=== PATIENT | male | born 1970 | race African-American/Black ===

== ENCOUNTER 2016-09-28 19:04 | Emergency (ER) | payer SELFPAY ==
[~2016-09-28] VITALS: Ht 190.5 cm; Wt 110.0 kg
[~2016-09-28 19:04] MED LIST: DOXY100T PO; LEVA750T PO; NAPR-576 PO; PERC5TAB12 PO
[2016-09-28 19:18] VITALS: BP 130/70; PULSE 96; RESP 18; TEMP 100.3; O2SAT 96
[2016-09-28] MEDS ORDERED: AZIT250T3 PO (19:43)
[2016-09-28] MEDS ORDERED: GUAI100S5 PO (19:43)
[2016-09-28] MEDS ORDERED: ALBUAER3 INH (19:43)
--- NOTE | 2016-09-28 19:45 | PD ---
HPI Chief Complaint: Cold / Flu Symptoms Time Seen by Provider: 19:27 Travel History International Travel<30 days: No Contact w/Intl Traveler<30days: No Traveled to known affect area: No History of Present Illness HPI 45-year-old male arrives with 4 days of fever. He has been taking 4 mg of Motrin every 4 hours to 6 hours. He has myalgias. He has had some difficulty sleeping due to fever. He reports a nonproductive cough. There is one sick contact at work who has had similar symptoms and has been improving after starting antibiotics. No nausea vomiting diarrhea or abdominal pain. Influenza assay was negative 3 days prior. PFSH Past Medical History Diminished Hearing: No Immunizations Current: Yes Influenza Vaccination: No Past Surgical History Pacemaker: No Social History Alcohol Use: No Tobacco Use: No (quit cigars 2012) Substance Use: No Allergies-Medications (Allergen,Severity, Reaction): Coded Allergies: No Known Allergies (Verified , 06/02/15) Reported Meds & Prescriptions Reported Meds & Active Scripts Active Proair Hfa 8.5 GM Inh (Albuterol Sulfate) 90 Mcg/Act Aer 1 Puff INH Q4H PRN 108 mcg/actuation Azithromycin 250 Mg Tab 250 Mg PO DIRECTED Take 2 tabs (500 mg) on day 1 then 1 tab daily x 4 days. Guaifenesin-Codeine Liq 100-10 Mg/5 Ml Soln 10 Ml PO HS PRN Review of Systems Except as stated in HPI: all other systems reviewed are Neg Physical Exam Narrative GENERAL: A 5-year-old male well-nourished well-developed no acute distress SKIN: Focused skin assessment warm/dry. HEAD: Atraumatic. Normocephalic. EYES: Pupils equal and round. No scleral icterus. No injection or drainage. ENT: No nasal bleeding or discharge. Mucous membranes pink and moist. NECK: Trachea midline. No JVD. CARDIOVASCULAR: Regular rate and rhythm. No murmur appreciated. RESPIRATORY: No accessory muscle use. Clear to auscultation. Breath sounds equal bilaterally. GASTROINTESTINAL: Abdomen soft, non-tender, nondistended. Hepatic and splenic margins not palpable. MUSCULOSKELETAL: No obvious deformities. No clubbing. No cyanosis. No edema. NEUROLOGICAL: Awake and alert. No obvious cranial nerve deficits. Motor grossly within normal limits. Normal speech. PSYCHIATRIC: Appropriate mood and affect; insight and judgment normal. Data Data Last Documented VS Vital Signs Date Time Temp Pulse Resp B/P Pulse Ox O2 Delivery O2 Flow Rate FiO2 09/28/16 19:32 81 16 97 09/28/16 19:18 100.3 130/70 Vital signs reviewed MDM Medical Decision Making Medical Screen Exam Complete: Yes Emergency Medical Condition: Yes Medical Record Reviewed: Yes Differential Diagnosis Atypical pneumonia, nonspecific viral syndrome, influenza Narrative Course We will send the patient home with prescriptions as written below. Seems most probable that he suffered from a nonspecific viral syndrome. Of note he did mention that an influenza assay performed 3 days ago at an urgent care facility was negative. Return precautions were discussed. Diagnosis Primary Impression: Cough Additional Impression: Fever Qualified Code: R50.9 - Fever, unspecified fever cause Referrals: Primary Care Physician 2 days Additional Instructions: You have a choice when it comes to health care, and we are glad that you chose [facility]. Hopefully, we have met your expectations on today's visit. You are welcome to return to [facility] at any time, as we are committed to meeting the health care needs of our community. Med/Other Pt SpecificInfo: Prescription(s) given Scripts Albuterol 8.5 GM Inh (Proair Hfa 8.5 GM Inh)90 Mcg/Act Aer1 Puff INH Q4H PRN ( COUGH) #1 INHALER Ref 0 108 mcg/actuation Prov:Elmer Martínez MD 09/28/16 Azithromycin 250 Mg [id number] Mg PO DIRECTED #6 TAB Ref 0 Take 2 tabs (500 mg) on day 1 then 1 tab daily x 4 days. Prov:Elmer Martínez MD 09/28/16 Guaifenesin-Codeine Liq 100-10 Mg/5 Ml Soln10 Ml PO HS PRN (COUGH) #1 BOTTLE Ref 0 Prov:Elmer Martínez MD 09/28/16 Disposition: 01 DISCHARGE HOME Condition: Stable Elmer Martínez MD Sep 28, 2016 19:45
[2016-09-28 19:55] VITALS: BP 125/67; PULSE 78; RESP 16; O2SAT 97
== END 2016-09-28 20:00 | disposition home or self-care (01) ==
LOC: PHED 19:04
DX: R05 Cough (principal); R50.9 Fever, unspecified
CPT/HCPCS: 99284

== ENCOUNTER 2017-06-30 09:57 | Emergency (ER) | payer OTHER ==
[2017-06-30] VITALS (10 sets, daily range): BP systolic 105–132; BP diastolic 62–79; PULSE 54–63; RESP 14–18; TEMP 97.8; O2SAT 96–100
[~2017-06-30 09:57] MED LIST changes: +ALBUAER3 INH; +AZIT250T3 PO; -DOXY100T PO; +GUAI100S5 PO; -LEVA750T PO; -NAPR-576 PO; -PERC5TAB12 PO
[2017-06-30] MEDS ORDERED: ASPIRIN 81 MG CHEW TAB PO ONE (10:45)
[2017-06-30] MEDS ORDERED: SODIUM CHLORIDE 0.9% FLUSH 10 ML FLUSH IVF PRN (10:45)
[2017-06-30] MEDS ORDERED: MORPHINE SULFATE 4 MG/ML INJ IV PUSH ONE (10:45)
[2017-06-30] MEDS: NITROGLYCERIN 0.4 MG SL 25 TABS/BTL SL SCH ×3 (11:05→11:32)
[2017-06-30 11:19] LABS: AUTOMATED NEUTROPHIL # 5.7 TH/MM3 (1.8-7.7); BASOPHIL # 0.1 TH/MM3 (0-0.2); BASOPHIL % 0.7 % (0.0-2.0); EOSINOPHIL # 0.1 TH/MM3 (0-0.4); EOSINOPHIL % 0.9 % (0.0-4.0); HEMATOCRIT 42.7 % (39.0-51.0); HEMOGLOBIN 13.8 GM/DL (13.0-17.0); LYMPH % 23.6 % (9.0-44.0); MEAN CELL VOLUME 86.9 FL (80.0-100.0); MEAN CORPUSCULAR HEMOGLOBIN 28.1 PG (27.0-34.0); MEAN CORPUSCULAR HGB CONC 32.4 % (32.0-36.0); MEAN PLATELET VOLUME 10.6 FL (7.0-11.0); MONO % 6.2 % (0.0-8.0); MONOCYTE # 0.5 TH/MM3 (0-0.9); NEUT % 68.6 % (16.0-70.0); PLATELET COUNT 202 TH/MM3 (150-450); RED BLOOD COUNT 4.91 MIL/MM3 (4.50-5.90); RED CELL DISTRIBUTION WIDTH 12.2 % (11.6-17.2); WHITE BLOOD COUNT 8.3 TH/MM3 (4.0-11.0)
--- NOTE | 2017-06-30 11:19 | RADRPT ---
EXAM DATE/TIME: 06/30/2017 11:02 [place] COMPARISON: No previous studies available for comparison. INDICATIONS : Chest pain. MEDICAL HISTORY : None. SURGICAL HISTORY : None. ENCOUNTER: Initial ACUITY: 2 days PAIN SCORE: 7/10 LOCATION: Left upper chest FINDINGS: A single view of the chest demonstrates the lungs to be symmetrically aerated without evidence of mas s, infiltrate or effusion. The cardiomediastinal contours are unremarkable. Osseous structures are intact. CONCLUSION: No acute disease. Jhonny Ferguson MD on June 30, 2017 at 11:16 Board Certified Radiologist. This report was verified electronically.
--- NOTE | 2017-06-30 11:24 | PD ---
HPI . Chest pain Chief Complaint: Cardiac Complaint Time Seen by Provider: 10:42 Travel History International Travel<30 days: No Contact w/Intl Traveler<30days: No Traveled to known affect area: No History of Present Illness HPI Patient presents with a chief complaint of chest pain. Onset was last night. It is a mild, aching, left-sided chest discomfort which is exacerbated by movement and deep respirations. Symptoms have waxed and waned. He did not have any trouble sleeping last night as the result of his pain. He denies any known injury. He does not have any significant associated symptoms such as shortness of breath, diaphoresis, dizziness or nausea. PFSH Past Medical History Medical History: Denies Significant Hx Diminished Hearing: No Immunizations Current: Yes Tetanus Vaccination: < 5 Years Influenza Vaccination: No Past Surgical History Joint Replacement: Yes (R KNEE SURGERY ) Pacemaker: No Other Surgery: No Social History Alcohol Use: No Tobacco Use: No (quit cigars 2012) Substance Use: No Allergies-Medications (Allergen,Severity, Reaction): Coded Allergies: No Known Allergies (Verified Adverse Reaction, Unknown, 06/30/17) Reported Meds & Prescriptions Reported Meds & Active Scripts Active No Active Prescriptions or Reported Medications Review of Systems Except as stated in HPI: all other systems reviewed are Neg Physical Exam Narrative GENERAL: Healthy-appearing man who is in no acute distress. SKIN: warm/dry. HEAD: Normocephalic. Atraumatic. EYES: Pupils equal and round. No scleral icterus. No injection or drainage. ENT: No nasal bleeding or discharge. Mucous membranes pink and moist. NECK: Trachea midline. Full range of motion without pain.. CARDIOVASCULAR: Regular rate and rhythm. Heart sounds are normal. RESPIRATORY: No accessory muscle use. Clear to auscultation. Breath sounds equal bilaterally. I am unable to elicit any chest wall tenderness. GASTROINTESTINAL: Abdomen soft. Nontender. Bowel sounds present. Nondistended. MUSCULOSKELETAL: No obvious deformities. NEUROLOGICAL: Awake and alert. No obvious cranial nerve deficits. Motor grossly within normal limits. Normal speech. PSYCHIATRIC: Appropriate mood and affect; insight and judgment normal. Data Data Last Documented VS Vital Signs Date Time Temp Pulse Resp B/P (MAP) Pulse Ox O2 Delivery O2 Flow Rate FiO2 06/30/17 12:30 54 17 117/70 (86) 98 Nasal Cannula 2.00 06/30/17 10:33 97.8 Orders Orders Electrocardiogram (06/30/17 11:15) Basic Metabolic Panel (Bmp) (06/30/17 10:44) Complete Blood Count With Diff (06/30/17 10:44) Magnesium (Mg) (06/30/17 10:44) Prothrombin Time / Inr (Pt) (06/30/17 10:44) Act Partial Throm Time (Ptt) (06/30/17 10:44) Troponin I (06/30/17 10:44) Chest, Single Ap (06/30/17 10:44) Ecg Monitoring (06/30/17 10:44) Iv Access Insert/Monitor (06/30/17 10:44) Oximetry (06/30/17 10:44) Aspirin Chew (Aspirin Chew) (06/30/17 10:45) Morphine Inj (Morphine Inj) (06/30/17 10:45) Sodium Chloride 0.9% Flush (Ns Flush) (06/30/17 10:45) Nitroglycerin Sl (Nitrostat Sl) (06/30/17 10:45) D-Dimer (06/30/17 11:24) Troponin I (06/30/17 13:50) Electrocardiogram (06/30/17 13:50) Labs Laboratory Tests Test 06/30/17 10:50 06/30/17 14:15 White Blood Count 8.3 TH/MM3 Red Blood Count 4.91 MIL/MM3 Hemoglobin 13.8 GM/DL Hematocrit 42.7 % Mean Corpuscular Volume 86.9 FL Mean Corpuscular Hemoglobin 28.1 PG Mean Corpuscular Hemoglobin Concent 32.4 % Red Cell Distribution Width 12.2 % Platelet Count 202 TH/MM3 Mean Platelet Volume 10.6 FL Neutrophils (%) (Auto) 68.6 % Lymphocytes (%) (Auto) 23.6 % Monocytes (%) (Auto) 6.2 % Eosinophils (%) (Auto) 0.9 % Basophils (%) (Auto) 0.7 % Neutrophils # (Auto) 5.7 TH/MM3 Lymphocytes # (Auto) 2.0 TH/MM3 Monocytes # (Auto) 0.5 TH/MM3 Eosinophils # (Auto) 0.1 TH/MM3 Basophils # (Auto) 0.1 TH/MM3 CBC Comment DIFF FINAL Differential Comment Prothrombin Time 10.2 SEC Prothromb Time International Ratio 1.0 RATIO Activated Partial Thromboplast Time 25.7 SEC D-Dimer Quantitative (PE/DVT) LESS THAN 0.19 MG/L FEU Blood Urea Nitrogen 13 MG/DL Creatinine 1.09 MG/DL Random Glucose 104 MG/DL Calcium Level 9.7 MG/DL Magnesium Level 2.0 MG/DL Sodium Level 140 MEQ/L Potassium Level 4.4 MEQ/L Chloride Level 105 MEQ/L Carbon Dioxide Level 29.3 MEQ/L Anion Gap 6 MEQ/L Estimat Glomerular Filtration Rate 88 ML/MIN Troponin I LESS THAN 0.02 NG/ML LESS THAN 0.02 NG/ML MDM Medical Decision Making Medical Screen Exam Complete: Yes Emergency Medical Condition: Yes Interpretation(s) EKG shows a sinus rhythm with LVH and diffuse ST segment elevation in leads V2 through V6. The elevation is minimal. Unfortunately, he has no old EKGs for comparison. Differential Diagnosis Differential diagnosis of chest pain includes but is not limited to musculoskeletal pain, pulmonary embolism, acute coronary syndrome, pneumonia, pleurisy Narrative Course This patient presents with chest pain which sounds like musculoskeletal chest pain. However, he does not have a normal EKG and he does not have any old EKGs for comparison. He has been given aspirin, morphine and sublingual nitroglycerin. An EKG will be repeated. Chest x-ray and routine cardiac labs are also in process. CBC & BMP Diagram 06/30/17 10:50 Calcium Level 9.7, Magnesium Level 2.0 trop < 0.02 Admission to the chest pain center was discussed with the patient and his . He is concerned about missing work tomorrow. His chest pain does not really sound like cardiac chest pain. We decided to check a second troponin and EKG 3 hours after the first. Those have been done. Repeat troponin is less than 0.02. EKG is unchanged. The patient will be allowed to go home. I will give him prescriptions for ibuprofen and Ultram. Diagnosis Primary Impression: Chest pain Qualified Codes: R07.1 - Chest pain on breathing Patient Instructions: Chest Pain (DC), General Instructions Med/Other Pt SpecificInfo: Prescription(s) given Scripts Tramadol (Ultram) 50 Mg Tab 50 MG PO Q4H Y for PAIN, #12 TAB 0 Refills Prov: Sheila Murray MD 06/30/17 Ibuprofen (Ibuprofen) 800 Mg Tab 800 MG PO Q8H Y for Pain/Inflammation, #60 TAB 0 Refills Prov: Sheila Murray MD 06/30/17 Disposition: 01 DISCHARGE HOME Condition: Stable Sheila Murray MD Jun 30, 2017 11:24
[2017-06-30 11:29] LABS: PROTHROMBIN TIME - PATIENT 10.2 SEC (9.8-11.6)
[2017-06-30 11:50] LABS: TROPONIN I LESS THAN 0.02 NG/ML (0.02-0.05)
[2017-06-30 11:52] LABS: BICARBONATE 29.3 MEQ/L (21.0-32.0); BLOOD UREA NITROGEN 13 MG/DL (7-18); CALCIUM 9.7 MG/DL (8.5-10.1); CHLORIDE 105 MEQ/L (98-107); CREATININE 1.09 MG/DL (0.60-1.30); GLOMERULAR FILTRATION RATE 88 ML/MIN (>89); GLUCOSE,RANDOM 104 MG/DL (74-106); SODIUM (NA) 140 MEQ/L (136-145)
--- NOTE | 2017-06-30 13:26 | EKG ---
Date Performed: 06/30/2017 Time Performed: 10:41:05 PTAGE: 46 years EKG: SINUS BRADYCARDIA VOLTAGE CRITERIA FOR LVH ST ELEVATION, CONSIDER ANTERIOR INJURY ACUTE WI NO PREVIOUS TRACING DOCTOR: Bhanu Mcpherson Interpretating Date/Time 06/30/2017 13:24:42
[2017-06-30] MEDS ORDERED: TRAM50 PO (15:19)
[2017-06-30] MEDS ORDERED: IBUP1TAB7 PO (15:19)
--- NOTE | 2017-07-02 09:21 | EKG ---
Date Performed: 06/30/2017 Time Performed: 14:14:46 PTAGE: 46 years EKG: SINUS BRADYCARDIA VOLTAGE CRITERIA FOR LVH Diffuse ST changes NO PREVIOUS TRACING DOCTOR: Doug Navarrete Interpretating Date/Time 07/02/2017 09:16:27
--- NOTE | 2017-07-02 09:24 | EKG ---
Date Performed: 06/30/2017 Time Performed: 12:05:30 PTAGE: 46 years EKG: SINUS BRADYCARDIA VOLTAGE CRITERIA FOR LVH ST ELEVATION, CONSIDER ANTERIOR INJURY ACUTE [place] PREVIOUS TRACING : 06/30/2017 10.41 DOCTOR: Doug Navarrete Interpretating Date/Time 07/02/2017 09:17:54
== END 2017-06-30 15:51 | disposition home or self-care (01) ==
LOC: NEPC 09:57
DX: R07.1 Chest pain on breathing (principal); R00.1 Bradycardia, unspecified; R94.31 Abnormal electrocardiogram [ECG] [EKG]
CPT/HCPCS: 71045; 80048; 83735; 84484; 85025; 85379; 85610; 85730; 93005; 96374; 99285; J2270